=== PATIENT | male | born 1980 | race American Indian/Alaskan Native ===

== ENCOUNTER 2019-02-27 19:24 | Emergency (ER) | payer MEDICARE ==
[2019-02-27 20:10] VITALS: BP 124/78
[2019-02-27] MEDS ORDERED: oxyCODONE /ACETAMINOPHEN 5-325MG TAB PO ONE (22:31)
[2019-02-27] MEDS ORDERED: IBUPROFEN 800 MG TAB PO ONE (22:31)
--- NOTE | 2019-02-27 22:31 | Emergency Department Report ---
ED Back Pain/Injury HPI - General Chief Complaint: Urogenital-Male Stated Complaint: LOWER BACK PAIN Time Seen by Provider: 02/27/19 22:28 Source: patient Limitations: No Limitations - History of Present Illness Initial Comments: Mr. Belle is a 38-year-old male with history of HIV and kidney stones who presents with lower back pain for the past 6 days. Bilateral Flank pain with dark urine. Feels like previous kidney stone pain. Pain radiates to both testicles. Denies tenderness or swelling of the scrotum. He denies fever. Denies vomiting. Denies diarrhea or chest pain. MD Complaint: back pain -: Gradual, days(s) (6) Similar Symptoms Previously: Yes Place: home Severity: moderate Severity scale (0 -10): 8 Quality: dull, aching Consistency: constant Improves With: none Worsens With: none Associated Symptoms: other (dark urine) - Related Data Previous Rx's Medication Instructions Recorded Last Taken Type Sulfamethoxazole/Trimethoprim 1 each PO BID #14 tablet 02/25/18 Unknown Rx [Bactrim DS TAB] oxyCODONE /ACETAMINOPHEN [Percocet 1 tab PO Q6HR PRN #15 tablet 02/28/19 Unknown Rx 5/325] Allergies Allergy/AdvReac Type Severity Reaction Status Date / Time No Known Allergies Allergy Unverified 02/25/18 15:24 ED Review of Systems ROS: Stated complaint: LOWER BACK PAIN Other details as noted in HPI Comment: All other systems reviewed and negative Constitutional: denies: fever, malaise Cardiovascular: denies: chest pain Gastrointestinal: denies: abdominal pain, nausea, vomiting Genitourinary: other (dark urine) Musculoskeletal: back pain ED Past Medical Hx - Past Medical History Previous Medical History?: Yes Hx HIV: Yes - Surgical History Past Surgical History?: No Additional Surgical History: hernia surgery - Social History Smoking Status: Current Every Day Smoker Substance Use Type: Marijuana - Medications Home Medications: Home Medications Medication Instructions Recorded Confirmed Last Taken Type Sulfamethoxazole/Trimethoprim 1 each PO BID #14 tablet 02/25/18 Unknown Rx [Bactrim DS TAB] oxyCODONE /ACETAMINOPHEN [Percocet 1 tab PO Q6HR PRN #15 tablet 02/28/19 Unknown Rx 5/325] ED Physical Exam - General Limitations: No Limitations General appearance: alert, in no apparent distress, other (appears comfortable) - Head Head exam: Present: atraumatic, normocephalic - Eye Eye exam: Present: normal appearance - ENT ENT exam: Present: mucous membranes moist - Neck Neck exam: Present: normal inspection, full ROM - Respiratory Respiratory exam: Present: normal lung sounds bilaterally. Absent: respiratory distress, wheezes, rales, rhonchi, stridor - Cardiovascular Cardiovascular Exam: Present: regular rate, normal rhythm, normal heart sounds. Absent: systolic murmur, diastolic murmur, rubs, gallop - GI/Abdominal GI/Abdominal exam: Present: soft, normal bowel sounds. Absent: distended, tenderness, guarding, rebound - Rectal Rectal exam: Present: deferred - Extremities Exam Extremities exam: Present: normal inspection - Neurological Exam Neurological exam: Present: alert, oriented X3 - Psychiatric Psychiatric exam: Present: normal affect, normal mood - Skin Skin exam: Present: warm, dry, intact, normal color. Absent: rash ED Course Vital Signs 02/27/19 02/27/19 02/27/19 20:07 22:37 22:38 Temperature 99.6 F Pulse Rate 75 Respiratory 18 18 18 Rate Blood Pressure 124/78 Blood Pressure 124/78 [Left] O2 Sat by Pulse 99 Oximetry ED Medical Decision Making - Lab Data Laboratory Results - last 24 hr 02/27/19 22:11 Urine Color Yellow Urine Turbidity Clear Urine pH 7.0 Ur Specific [place] 1.018 Urine Protein <15 mg/dl Urine Glucose (UA) Neg Urine Ketones Neg Urine Blood Neg Urine Nitrite Neg Urine Bilirubin Neg Urine Urobilinogen 2.0 Ur Leukocyte Esterase Neg Urine WBC (Auto) 4.0 Urine RBC (Auto) 9.0 U Epithel Cells (Auto) 2.0 Urine Mucus Few - Medical Decision Making Mr. Belle presents with bilateral flank pain DDX: renal colic lumbar strain. I do not suspect vascular devastation such as aortic dissection. Mr. Belle appeared well and comfortable. CT not necessary without severe pain abnormal vital signs or SIRS Given referral to urologist. rx: percocet Critical care attestation.: If time is entered above; I have spent that time in minutes in the direct care of this critically ill patient, excluding procedure time. ED Disposition Clinical Impression: Bilateral flank pain Disposition: DC-01 TO HOME OR SELFCARE Is pt being admited?: No Does the pt Need Aspirin: No Condition: Stable Instructions: Flank Pain (ED) Prescriptions: oxyCODONE /ACETAMINOPHEN [Percocet 5/325] 1 tab PO Q6HR PRN #15 tablet PRN Reason: Pain Referrals: DAQUAN HARRELL MD [Staff Physician] - 3-5 Days
[2019-02-27 22:40] LABS: Bilirubin,Urine NEG (Negative); Blood,Urine NEG (Negative); Color,Urine Yellow (Yellow); Mucus,Urine FEW /HPF; Protein,Urine <15 mg/dL mg/dL (Negative)
[2019-02-28] MEDS ORDERED: oxyCODONE /ACETAMINOPHEN 5-325MG TAB PO ONE (01:29)
== END 2019-02-28 01:35 | disposition home or self-care (01) ==
LOC: ED 19:24
DX: R10.9 Unspecified abdominal pain (principal)
CPT/HCPCS: 81001

== ENCOUNTER 2019-03-06 12:57 | Emergency (ER) | payer MEDICARE ==
[2019-03-06 13:03] VITALS: BP 109/71
[2019-03-06 16:59] LABS: Basophils % (Auto) 0.5 % (0.0-1.8); Eosinophils % (Auto) 0.5 % (0.0-4.3); Hematocrit 31.9 % (35.5-45.6); Hemoglobin 10.7 gm/dl (11.8-15.2); Lymphocytes # (Auto) 2.6 K/mm3 (1.2-5.4); Lymphocytes % (Auto) 27.1 % (13.4-35.0); Mean Corpuscular HGB Conc 33 % (32-34); Mean Corpuscular Volume 94 fl (84-94); Monocytes # (Auto) 0.9 K/mm3 (0.0-0.8); Monocytes % (Auto) 9.6 % (0.0-7.3); Platelet Count 464 K/mm3 (140-440); Red Cell Distribution Width 14.2 % (13.2-15.2)
[2019-03-06 17:26] LABS: Alanine Aminotransferase 7 units/L (7-56); Albumin 3.8 g/dL (3.9-5); BUN/Creatinine Ratio 13; Blood Urea Nitrogen 14 mg/dL (9-20); Calcium 9.2 mg/dL (8.4-10.2); Hemolysis Index 21
[2019-03-06 17:38] LABS: Bilirubin,Urine NEG (Negative); Blood,Urine NEG (Negative); Color,Urine Yellow (Yellow); Mucus,Urine FEW /HPF; Urobilinogen,Urine < 2.0 mg/dL (<2.0); WBC,Urine < 1.0 /HPF (0.0-6.0)
[2019-03-06] MEDS ORDERED: dexAMETHasone 20 MG/5 ML VIAL IM ONE (18:34)
[2019-03-06] MEDS ORDERED: KETOROLAC 30 MG/1 ML INJ IM ONE (18:34)
[2019-03-06] MEDS ORDERED: CYCLOBENZAPRINE 10 MG TAB PO ONE (18:34)
--- NOTE | 2019-03-06 19:04 | Emergency Department Report ---
ED Back Pain/Injury HPI - General Chief Complaint: Abdominal Pain Stated Complaint: EXTREME BACK PAIN Source: patient Limitations: No Limitations - History of Present Illness Initial Comments: Patient is a 38-year-old male with a history of HIV who presents to the ED with complaint of acute onset persistent nontraumatic low back pain that radiates to the right hip on that lower leg for the last 1 month course of the last 3 days. Patient denies fall, traumatic injury, heavy lifting, nausea, vomiting, hematuria, dysuria, urinary frequency and urgency, numbness and tingling or weakness of lower extremities bilaterally, urinary or bowel incontinence, fever, chills, testicular pain, dizziness, chest pain or shortness of breath. Patient states that he was initially treated for the same about a month ago and was discharged home with Percocet and status of the pain has persisted and got worse. MD Complaint: back pain, other (right lower leg pain) -: Gradual, month(s) (1) Similar Symptoms Previously: Yes Place: home Radiation: right leg Severity: severe Severity scale (0 -10): 8 Quality: sharp, aching Consistency: constant Improves With: none Worsens With: movement, walking Context: while lifting, turning/twisting Associated Symptoms: denies other symptoms. denies: confusion, weakness, chest pain, numbness, difficulty walking, cough, diaphoresis, incontinence, fever/chills, headaches, abdominal pain, loss of appetite, malaise, nausea/vomiting, seizure - Related Data Previous Rx's Medication Instructions Recorded Last Taken Type Sulfamethoxazole/Trimethoprim 1 each PO BID #14 tablet 02/25/18 Unknown Rx [Bactrim DS TAB] oxyCODONE /ACETAMINOPHEN [Percocet 1 tab PO Q6HR PRN #15 tablet 02/28/19 Unknown Rx 5/325] Naproxen 500 mg PO Q12H PRN #30 tablet 03/06/19 Unknown Rx Prednisone [predniSONE 10 mg 10 mg PO .TAPER #21 tab.ds.pk 03/06/19 Unknown Rx (6-Day Pack, 21 Tabs)] methOCARBAMOL [Robaxin TAB] 750 mg PO Q8H PRN #24 tablet 03/06/19 Unknown Rx traMADoL [Ultram] 50 mg PO Q6HR PRN #12 tablet 03/06/19 Unknown Rx Allergies Allergy/AdvReac Type Severity Reaction Status Date / Time No Known Allergies Allergy Unverified 02/25/18 15:24 ED Review of Systems ROS: Stated complaint: EXTREME BACK PAIN Other details as noted in HPI Constitutional: denies: chills, fever Eyes: denies: eye pain, eye discharge, vision change ENT: denies: ear pain, throat pain Respiratory: denies: cough, shortness of breath, wheezing Cardiovascular: denies: chest pain, palpitations Endocrine: no symptoms reported Gastrointestinal: denies: abdominal pain, nausea, diarrhea Genitourinary: denies: urgency, dysuria Musculoskeletal: back pain, arthralgia (right lower leg pain). denies: joint swelling Skin: denies: rash, lesions Neurological: denies: headache, weakness, paresthesias Psychiatric: denies: anxiety, depression Hematological/Lymphatic: denies: easy bleeding, easy bruising ED Past Medical Hx - Past Medical History Hx HIV: Yes - Surgical History Additional Surgical History: hernia surgery - Social History Smoking Status: Current Every Day Smoker Substance Use Type: None - Medications Home Medications: Home Medications Medication Instructions Recorded Confirmed Last Taken Type Sulfamethoxazole/Trimethoprim 1 each PO BID #14 tablet 02/25/18 Unknown Rx [Bactrim DS TAB] oxyCODONE /ACETAMINOPHEN [Percocet 1 tab PO Q6HR PRN #15 tablet 02/28/19 Unknown Rx 5/325] Naproxen 500 mg PO Q12H PRN #30 tablet 03/06/19 Unknown Rx Prednisone [predniSONE 10 mg 10 mg PO .TAPER #21 tab.ds.pk 03/06/19 Unknown Rx (6-Day Pack, 21 Tabs)] methOCARBAMOL [Robaxin TAB] 750 mg PO Q8H PRN #24 tablet 03/06/19 Unknown Rx traMADoL [Ultram] 50 mg PO Q6HR PRN #12 tablet 03/06/19 Unknown Rx ED Physical Exam - General Limitations: No Limitations General appearance: alert, in no apparent distress - Head Head exam: Present: atraumatic, normocephalic, normal inspection - Eye Eye exam: Present: normal appearance, PERRL, EOMI Pupils: Present: normal accommodation - ENT ENT exam: Present: normal exam, normal orophraynx, mucous membranes moist, TM's normal bilaterally, normal external ear exam - Neck Neck exam: Present: normal inspection, full ROM - Respiratory Respiratory exam: Present: normal lung sounds bilaterally. Absent: respiratory distress, wheezes, rales, chest wall tenderness, decreased breath sounds - Cardiovascular Cardiovascular Exam: Present: regular rate, normal rhythm, normal heart sounds. Absent: systolic murmur, diastolic murmur, rubs, gallop - GI/Abdominal GI/Abdominal exam: Present: soft, normal bowel sounds. Absent: tenderness, guarding, hyperactive bowel sounds, hypoactive bowel sounds, mass - Extremities Exam Extremities exam: Present: normal inspection, full ROM, tenderness (probable right hip tenderness), normal capillary refill. Absent: pedal edema, joint swelling - Back Exam Back exam: Present: normal inspection, full ROM, tenderness (palpable lumbosacral paraspinal musculoskeletal tenderness), muscle spasm, paraspinal t enderness. Absent: CVA tenderness (L), vertebral tenderness - Neurological Exam Neurological exam: Present: alert, oriented X3, CN II-XII intact, normal gait, r eflexes normal - Psychiatric Psychiatric exam: Present: normal affect, normal mood - Skin Skin exam: Present: warm, dry, intact, normal color. Absent: rash ED Course Vital Signs 03/06/19 12:58 Temperature 98.3 F Pulse Rate 77 Respiratory 14 Rate Blood Pressure 109/71 O2 Sat by Pulse 97 Oximetry ED Medical Decision Making - Lab Data Result diagrams: 03/06/19 16:37 03/06/19 16:37 - Medical Decision Making This is a 38-year-old male who presented to the ED. Acute onset nontraumatic low back pain that is reducible right lower leg for 1 month. In the ED, patient is alert and oriented 3, anxious but in no acute distress. Lab test results w ere reviewed that all nonactionable included urinalysis. There is no sign of kidney stones in urinalysis. Patient was treated for pain in the ED and discharged home on medications for pain and muscle relaxants, and was advised to follow-up with [facility] for further evaluation and to establish care. Patient was also advised to return to the ED immediately if symptoms get worse. - Differential Diagnosis muscle spasm; sciatica; degenerative disc disease; muscle strain; UTI Critical care attestation.: If time is entered above; I have spent that time in minutes in the direct care of this critically ill patient, excluding procedure time. ED Disposition Clinical Impression: Spasm of muscle of lower back Acute low back pain with sciatica Qualifiers: Back pain laterality: right Sciatica laterality: sciatica of right side Qualified Code(s): M54.41 - Lumbago with sciatica, right side Disposition: TO HOME OR SELFCARE Is pt being admited?: No Does the pt Need Aspirin: No Condition: Stable Instructions: Sciatica (ED), Muscle Spasm (ED), Acute Low Back Pain (ED) Additional Instructions: Take medication with food, drink plenty of fluids and follow-up with primary care physician at [facility] in 5-7 days for reevaluation. Return to the ED immediately if symptoms get worse. Prescriptions: Naproxen 500 mg PO Q12H PRN #30 tablet PRN Reason: Pain , Severe (7-10) Prednisone [predniSONE 10 mg (6-Day Pack, 21 Tabs)] 10 mg PO .TAPER #21 tab.ds.pk methOCARBAMOL [Robaxin TAB] 750 mg PO Q8H PRN #24 tablet PRN Reason: Muscle Spasm traMADoL [Ultram] 50 mg PO Q6HR PRN #12 tablet PRN Reason: Pain Referrals: [facility] [Outside] - 3-5 Days Time of Disposition: 19:06 Print Language: GRENADIAN
== END 2019-03-06 19:20 | disposition home or self-care (01) ==
LOC: ED 12:57
DX: M62.830 Muscle spasm of back (principal); M54.40 Lumbago with sciatica, unspecified side; F17.200 Nicotine dependence, unspecified, uncomplicated; Z98.890 Other specified postprocedural states; Z79.899 Other long term (current) drug therapy
CPT/HCPCS: 36415; 80053; 81001; 85025; 96372; 99283; J1100; J1885

== ENCOUNTER 2019-04-06 16:58 | Emergency (ER) | payer MEDICARE ==
[2019-04-06 18:32] VITALS: BP 102/59
--- NOTE | 2019-04-06 18:34 | Event Note ---
ED Screening Note Date of service: 04/06/19 Time: 18:30 ED Screening Note: 38 y/o male comes for lower back pain and testicle swelling intermittent times 3 weeks. PMH HIV on meds. No trauma or injury. Taking Percocet and muscle. This initial assessment/diagnostic orders/clinical plan/treatment(s) is/are subject to change based on patients health status, clinical progression and re- assessment by fellow clinical providers in the ED. Further treatment and workup at subsequent clinical providers discretion. Patient/guardian urged not to elope from the ED as their condition may be serious if not clinically assessed and managed. Initial orders include:
[2019-04-06] MEDS ORDERED: KETOROLAC 60 MG/2 ML INJ IM ONE (19:05)
--- NOTE | 2019-04-06 19:22 | Emergency Department Report ---
ED Male HPI - General Chief complaint: Back Pain/Injury Stated complaint: BACK PAIN Time Seen by Provider: 04/06/19 18:30 Source: patient Mode of arrival: Wheelchair Limitations: No Limitations - History of Present Illness Initial comments: Patient is a 38-year-old -Citizen Of [place] male who has a history of being HIV positive who is coming in with 2 weeks of testicular pain. Patient states he's had pain and swelling to both testicles intermittently. Patient states that the pain and swelling, and go. Current pain is in the right testicle there is some mild swelling. Patient states when he does have the pain and swelling and some radiation of pain to his lower back. Patient denies dysuria or hematuria or penile discharge. The patient is compliant with his HIV medications. Patient's been taking Percocet at home for pain. Pain in the testicles as 8 out of 10 in severity. It is worse with palpation. - Related Data Previous Rx's Medication Instructions Recorded Last Taken Type Sulfamethoxazole/Trimethoprim 1 each PO BID #14 tablet 02/25/18 Unknown Rx [Bactrim DS TAB] oxyCODONE /ACETAMINOPHEN [Percocet 1 tab PO Q6HR PRN #15 tablet 02/28/19 Unknown Rx 5/325] Naproxen 500 mg PO Q12H PRN #30 tablet 03/06/19 Unknown Rx Prednisone [predniSONE 10 mg 10 mg PO .TAPER #21 tab.ds.pk 03/06/19 Unknown Rx (6-Day Pack, 21 Tabs)] methOCARBAMOL [Robaxin TAB] 750 mg PO Q8H PRN #24 tablet 03/06/19 Unknown Rx traMADoL [Ultram] 50 mg PO Q6HR PRN #12 tablet 03/06/19 Unknown Rx Ciprofloxacin HCl [Ciprofloxacin 500 mg PO Q12HR #14 tab 04/06/19 Unknown Rx TAB] Ketorolac [Toradol] 10 mg PO Q6H PRN #12 tablet 04/06/19 Unknown Rx methOCARBAMOL [Robaxin TAB] 500 mg PO Q6H PRN #14 tablet 04/06/19 Unknown Rx traMADoL [Ultram] 50 mg PO Q6HR PRN #12 tablet 04/06/19 Unknown Rx Allergies Allergy/AdvReac Type Severity Reaction Status Date / Time No Known Allergies Allergy Unverified 02/25/18 15:24 ED Review of Systems ROS: Stated complaint: BACK PAIN Other details as noted in HPI Comment: All other systems reviewed and negative ED Past Medical Hx - Past Medical History Hx HIV: Yes - Surgical History Additional Surgical History: hernia surgery - Social History Smoking Status: Never Smoker Substance Use Type: None - Medications Home Medications: Home Medications Medication Instructions Recorded Confirmed Last Taken Type Sulfamethoxazole/Trimethoprim 1 each PO BID #14 tablet 02/25/18 Unknown Rx [Bactrim DS TAB] oxyCODONE /ACETAMINOPHEN [Percocet 1 tab PO Q6HR PRN #15 tablet 02/28/19 Unknown Rx 5/325] Naproxen 500 mg PO Q12H PRN #30 tablet 03/06/19 Unknown Rx Prednisone [predniSONE 10 mg 10 mg PO .TAPER #21 tab.ds.pk 03/06/19 Unknown Rx (6-Day Pack, 21 Tabs)] methOCARBAMOL [Robaxin TAB] 750 mg PO Q8H PRN #24 tablet 03/06/19 Unknown Rx traMADoL [Ultram] 50 mg PO Q6HR PRN #12 tablet 03/06/19 Unknown Rx Ciprofloxacin HCl [Ciprofloxacin 500 mg PO Q12HR #14 tab 04/06/19 Unknown Rx TAB] Ketorolac [Toradol] 10 mg PO Q6H PRN #12 tablet 04/06/19 Unknown Rx methOCARBAMOL [Robaxin TAB] 500 mg PO Q6H PRN #14 tablet 04/06/19 Unknown Rx traMADoL [Ultram] 50 mg PO Q6HR PRN #12 tablet 04/06/19 Unknown Rx ED Physical Exam - General Limitations: No Limitations General appearance: alert, in no apparent distress - Head Head exam: Present: atraumatic, normocephalic - Eye Eye exam: Present: normal appearance, PERRL, EOMI - ENT ENT exam: Present: mucous membranes moist - Neck Neck exam: Present: normal inspection - Respiratory Respiratory exam: Present: normal lung sounds bilaterally. Absent: respiratory distress, wheezes, rales, rhonchi - Cardiovascular Cardiovascular Exam: Present: regular rate, normal rhythm, normal heart sounds. Absent: systolic murmur, diastolic murmur, rubs, gallop - GI/Abdominal GI/Abdominal exam: Present: soft, normal bowel sounds. Absent: distended, tenderness, guarding - Rectal Rectal exam: Present: deferred - exam: Present: normal inspection, testicular tenderness. Absent: urethral discharge, scrotal swelling External exam: Present: erythema (to the right testicle with tenderness) - Extremities Exam Extremities exam: Present: normal inspection - Back Exam Back exam: Present: normal inspection - Neurological Exam Neurological exam: Present: alert, oriented X3 - Psychiatric Psychiatric exam: Present: normal affect, normal mood - Skin Skin exam: Present: warm, dry, intact, normal color. Absent: rash ED Course Vital Signs 04/06/19 18:30 Temperature 98 F Pulse Rate 61 Respiratory 18 Rate Blood Pressure 102/59 O2 Sat by Pulse 96 Oximetry ED Medical Decision Making - Lab Data Lab Results 04/06/19 Range/Units 19:58 Urine Color Yellow (Yellow) Urine Turbidity Clear (Clear) Urine pH 5.0 (5.0-7.0) Ur Specific [place] 1.025 (1.003-1.030) Urine Protein 30 mg/dl (Negative) mg/dL Urine Glucose (UA) Neg (Negative) mg/dL Urine Ketones Neg (Negative) mg/dL Urine Blood Sm (Negative) Urine Nitrite Neg (Negative) Urine Bilirubin Neg (Negative) Urine Urobilinogen 2.0 (<2.0) mg/dL Ur Leukocyte Esterase Tr (Negative) Urine WBC (Auto) 7.0 H (0.0-6.0) /HPF Urine RBC (Auto) 4.0 (0.0-6.0) /HPF U Epithel Cells (Auto) 1.0 (0-13.0) /HPF Urine Mucus 3+ /HPF - Radiology Data [facility] [address] [place] [address] Ultrasound Report Signed Patient: CLAUDETTE PHAM MR#: [id number] : 1980 Acct:[id number] Age/Sex: 38 / M ADM Date: 04/06/19 Loc: ED Attending Dr: Ordering Physician: VIKTORIA ROSS MD Date of Service: 04/06/19 Procedure(s): US testicular doppler comp Accession Number(s): [id number] cc: VIKTORIA ROSS MD Scrotal ultrasound. History: right testicular swelling Comparison: None. Procedure: Real time ultrasound was utilized to evaluate. Doppler analysis was utilized to evaluate testicular blood flow. Findings: The testicles are normal in size and echotexture. Normal vascularity is seen bilaterally. Epididymis is normal in appearance bilaterally. There is no intra or extratesticular mass identified. However there are small bilateral hydroceles, slightly larger on the left.. Impression: 1. Small bilateral hydroceles, slightly larger on the left.. 2. Normal appearance of both testes. No evidence for torsion or mass. Signer Name: Landy Weiss MD Signed: 04/06/2019 8:34 PM Workstation Name: [email or web address] - Medical Decision Making Patient does have evidence of a mild urinary tract infection. Given the patient's age she may be having some reflux of infected urine acting to the scrotum. Patient is having bilateral hydroceles which likely are very intense size which is why the patient states he has testicular swelling on the right at times and sometimes on the left. Patient be started on Cipro twice daily for the infection and also we will give him information on scrotal elevation to help with the hydrocele. Patient discharged home. Critical care attestation.: If time is entered above; I have spent that time in minutes in the direct care of this critically ill patient, excluding procedure time. ED Disposition Clinical Impression: Hydrocele in adult UTI (urinary tract infection) Qualifiers: Urinary tract infection type: site unspecified Hematuria presence: without hematuria Qualified Code(s): N39.0 - Urinary tract infection, site not specified Disposition: DC-01 TO HOME OR SELFCARE Is pt being admited?: No Does the pt Need Aspirin: No Condition: Stable Instructions: Urinary Tract Infection in Men (ED), Hydrocele (ED), Testicle Pain (ED) Referrals: DAQUAN HARRELL MD [Staff Physician] - 3-5 Days Time of Disposition: 21:24
[2019-04-06 20:10] LABS: Bilirubin,Urine NEG (Negative); Blood,Urine SM (Negative); Color,Urine Yellow (Yellow); Mucus,Urine 3+ /HPF
--- NOTE | 2019-04-06 20:38 | Ultrasound Report ---
Scrotal ultrasound. History: right testicular swelling Comparison: None. Procedure: Real time ultrasound was utilized to evaluate. Doppler analysis was utilized to evaluate testicular blood flow. Findings: The testicles are normal in size and echotexture. Normal vascularity is seen bilaterally. E pididymis is normal in appearance bilaterally. There is no intra or extratesticular mass identified. However there are small bilateral hydroceles, s lightly larger on the left.. Impression: 1. Small bilateral hydroceles, slightly larger on the left.. 2. Normal appearance of both testes. No evidence for torsion or mass. Signer Name: Landy Weiss MD Signed: 04/06/2019 8:34 PM Workstation Name: [id number]
== END 2019-04-06 21:41 | disposition home or self-care (01) ==
LOC: ED 16:58
DX: N43.3 Hydrocele, unspecified (principal); N39.0 Urinary tract infection, site not specified; Z21 Asymptomatic human immunodeficiency virus [HIV] infection status; Z98.890 Other specified postprocedural states; Z79.899 Other long term (current) drug therapy
CPT/HCPCS: 81001; 93975; 96372; 99283; J1885